=== PATIENT | female | born 1995 | race Caucasian/White ===

== ENCOUNTER 2018-09-25 23:13 | Emergency (ER) | payer OTHER ==
[~2018-09-25] VITALS: Ht 175.3 cm; Wt 99.8 kg
[2018-09-25] MEDS ORDERED: CYCLOBENZAPRINE10 MG PO (23:52)
== END 2018-09-26 00:13 | disposition home or self-care (01) ==
LOC: ED 23:13
DX: G89.29 Other chronic pain (principal); M54.5 Low back pain
CPT/HCPCS: 99283

== ENCOUNTER 2019-01-25 19:09 | Emergency (ER) | payer OTHER ==
[~2019-01-25] VITALS: Ht 175.3 cm; Wt 95.2 kg
[~2019-01-25 19:09] MED LIST: CYCLOBENZAPRINE10 MG PO; KEFLEX500 MG PO; TRAMADOL HCL50 MG PO
--- OUTSIDE RECORDS SUMMARY | 2019-01-25 19:12 | XMS ---
PreManage Notification: ASHIA BALLESTEROS [employer] Events No recent Security Events currently on file CRITERIA MET - [facility] - 2 Visits in 30 Days CARE PROVIDERS NAEL HAMMER Family Medicine Current PHONE: Unknown Sweta Merritt Counselor: Mental Health Current PHONE: [phone] KAYLA REBOLLEDO \Vish\ Family Therapist Current PHONE: [phone] SWETA MERRITT Primary Care Current PHONE: Unknown KAYLA REBOLLEDO Primary [facility] Current PHONE: Unknown Kim has no Care Guidelines for this patient. [facility]hem[facility] VISIT COUNT (12 MO.) [address] [facility] TOTAL 3 NOTE: Visits indicate total known visits. ED/UCC VISIT TRACKING (12 MO.) 01/25/2019 19:10 [facility] TYPE: Emergency COMPLAINT: - KNEE INJURY 12/26/2018 02:00 [facility] TYPE: Emergency COMPLAINT: - FLANK PAIN DIAGNOSES: - Personal history of nicotine dependence - Tubulo-interstitial nephritis, not specified as acute or chronic - Unspecified abdominal pain 09/25/2018 23:13 [facility] TYPE: Emergency COMPLAINT: - BACK PAIN/NON INJURY DIAGNOSES: - Low back pain - Other chronic pain INPATIENT VISIT TRACKING (12 MO.) No inpatient visits to display in this time frame [email or web address]
== END 2019-01-25 21:25 | disposition home or self-care (01) ==
LOC: ED 19:09
DX: S61.305A Unspecified open wound of left ring finger with damage to nail, initial encounter (principal); S30.1XXA Contusion of abdominal wall, initial encounter; S80.211A Abrasion, right knee, initial encounter; W01.198A Fall on same level from slipping, tripping and stumbling with subsequent striking against other object, initial encounter
CPT/HCPCS: 73560; 73590; 81001; 99283

== ENCOUNTER 2021-05-21 04:13 | Emergency (ER) | payer OTHER ==
[~2021-05-21] VITALS: Ht 175.3 cm; Wt 97.5 kg
[2021-05-21] MEDS ORDERED: LITHIUM CARBON300 M1 PO (05:30)
--- NOTE | 2021-05-21 21:27 | EKG ---
[facility] [address] [facility] [place] [address] Signed Normal sinus rhythm Incomplete right bundle branch block Borderline ECG No previous ECGs available Confirmed by KIARA DANIEL DO ([id number]) on 05/21/2021 9:27:51 PM Electronically Signed By: KIARA DANIEL DO 05/21/212126 PATIENT NAME: ASHIA BALLESTEROS Electrocardiogram DATE OF : [birth year] PHYSICIAN: KIARA DANIEL DO REPORT #: [id number] REPORT IS CONFIDENTIAL AND NOT TO BE RELEASED WITHOUT AUTHORIZATION
== END 2021-05-21 21:45 | disposition home or self-care (01) ==
LOC: ED 04:13
DX: T42.4X1A Poisoning by benzodiazepines, accidental (unintentional), initial encounter (principal); Z20.822 Contact with and (suspected) exposure to COVID-19; F31.9 Bipolar disorder, unspecified; Z79.899 Other long term (current) drug therapy
CPT/HCPCS: 80053; 80178; 81001; 84443; 84703; 85025; 93005; 93010; 99285-25; C9803; G0480; J7030; U0003